=== PATIENT | male | born 1980 | race Caucasian/White ===

== ENCOUNTER 2018-08-28 11:58 | Emergency (ER) | payer MEDICAID ==
[~2018-08-28] VITALS: Ht 182.9 cm; Wt 91.1 kg
[~2018-08-28 11:58] MED LIST: AMOX1TAB64 PO; HYDR-3240 PO; NONE PER PT
[2018-08-28 12:27] VITALS: BP 126/72
[2018-08-28] MEDS ORDERED: DIPH,PERTUSS(ACELL),TET VAC/PF 0.5 ML IM-VACC ONE ×2 (12:55→13:00)
== END 2018-08-28 13:02 | disposition home or self-care (01) ==
LOC: ED 12:55
DX: L72.3 Sebaceous cyst (principal); F17.200 Nicotine dependence, unspecified, uncomplicated
CPT/HCPCS: 90471; 90715

== ENCOUNTER 2020-08-16 19:06 | Emergency (ER) | payer MEDICAID ==
[~2020-08-16] VITALS: Ht 180.3 cm; Wt 95.2 kg
--- NOTE | 2020-08-16 19:23 | NUR ---
THIS IS A 40Y M THAT COMES IN FOR SWELLING AND WOUND ON L FACE. PT WAS SEEN AND DX WITH CA, WAS SUPPOSED TO GET REMOVAL AND COVERAGE OF AREA BUT SURGEON CLOSED OFFICE DUE TO COVID. PT CONNECTED TO MONITORING, VSS, NADN, PT MAINTAINING AIRWAY AND DENIES ANY VISION CHANGES.
[2020-08-16 19:55] VITALS: BP 150/87
--- NOTE | 2020-08-16 20:16 | NUR ---
Patient/Caregiver given discharge instructions and they have confirmed that they understand the instructions. Patient ambulatory with steady gait.
== END 2020-08-16 20:21 | disposition home or self-care (01) ==
LOC: ED 19:45
DX: S01.402D Unspecified open wound of left cheek and temporomandibular area, subsequent encounter (principal); F17.200 Nicotine dependence, unspecified, uncomplicated; X58.XXXD Exposure to other specified factors, subsequent encounter
CPT/HCPCS: 99281

== ENCOUNTER 2020-09-05 09:17 | Emergency (ER) | payer MEDICAID ==
[~2020-09-05] VITALS: Ht 180.3 cm; Wt 94.8 kg
[2020-09-05 09:20] VITALS: BP 133/82
[2020-09-05] MEDS ORDERED: CLINDAMYCIN 150 MG/ML, 6ML ONE (09:59)
[2020-09-05] MEDS ORDERED: CLINDAMYCIN 150 MG/ML, 6ML IM ONE (10:00)
== END 2020-09-05 10:19 | disposition home or self-care (01) ==
LOC: ED 09:31
DX: L03.211 Cellulitis of face (principal); F17.200 Nicotine dependence, unspecified, uncomplicated; Z85.9 Personal history of malignant neoplasm, unspecified
CPT/HCPCS: 96372; 99283; S0077

== ENCOUNTER 2020-09-07 09:49 | Emergency (ER) | payer MEDICAID ==
[~2020-09-07] VITALS: Ht 180.3 cm; Wt 97.3 kg
[2020-09-07 09:51] VITALS: BP 134/93
== END 2020-09-07 10:35 | disposition home or self-care (01) ==
LOC: ED 10:15
DX: C44.309 Unspecified malignant neoplasm of skin of other parts of face (principal); L03.211 Cellulitis of face
CPT/HCPCS: 99281